=== PATIENT | female | born 1995 | race Two or more races ===

== ENCOUNTER 2023-10-04 09:16 | Emergency (ER) | payer OTHER ==
[~2023-10-04] VITALS: Ht 170.2 cm; Wt 72.0 kg
[2023-10-04 10:43] VITALS: BP 105/72; PULSE 82; RESP 18; TEMP 98.1; O2SAT 98
[2023-10-04 12:22] LABS: Basophils # (auto) 0 10 ^3/uL (0-0.2); Basophils % (auto) 0.8 % (0.0-2.0); Eosinophils # (auto) 0.1 10 ^3/uL (0-0.8); Eosinophils % (auto) 3.1 % (0.0-7.0); Hematocrit 39.6 % (36.0-46.0); Lymphocytes # (auto) 1.6 10 ^3/uL (0.4-5.4); Lymphocytes % (auto) 35.7 % (10.0-50.0); Mean Corpuscular Hemoglobin 28.3 pg (28.0-32.0); Mean Corpuscular Hgb Conc. 32.7 g/dL (32.0-36.0); Mean Corpuscular Volume 86.4 fL (80.0-100.0); Monocytes # (auto) 0.4 10 ^3/uL (0-1.3); Monocytes % (auto) 8.8 % (0.0-12.0); Neutrophils # (auto) 2.3 10 ^3/uL (1.6-8.6); Neutrophils % (auto) 51.6 % (37.0-80.0); Nucleated Red Blood Cells % 0.1 %; Red Blood Cells 4.58 10^6/uL (4.0-5.20); Red Cell Distribution Width 13.7 % (11.8-14.3); White Blood Cell 4.5 10^3/uL (4.4-10.8)
[2023-10-04 12:30] LABS: Alanine Aminotransferase 21 U/L (7-40); Albumin 4.2 g/dL (3.2-4.8); Alkaline Phosphatase 74 U/L (46-116); Anion Gap 4 (5-15); Aspartate Aminotransferase 37 U/L (13-40); BUN/Creatinine Ratio 12.8 (10.0-20.0); Blood Urea Nitrogen 11 mg/dL (9-23); Calcium 8.8 mg/dL (8.5-10.1); Carbon Dioxide 26 mmol/L (20-30); Chloride 108 mmol/L (98-107); Glucose 103 mg/dL (74-106); Potassium 4.8 mmol/L (3.5-5.1); Sodium 138 mmol/L (136-145)
[2023-10-04] MEDS: DOXYCYCLINE 100MG/250ML 250 ML IV ONE (12:30)
[2023-10-04 12:31] LABS: Bilirubin, Total 0.5 mg/dL (0.2-1.0); INR 1.04 (0.9-1.15); Prothrombin Time 10.9 sec (9.3-11.8)
[2023-10-04] MEDS ORDERED: DOXY-286 PO (13:09)
[2023-10-04] MEDS ORDERED: CALA1SUS2 EX (13:09)
[2023-10-04] MEDS ORDERED: TRIA0.1O TOP (13:09)
[2023-10-04] MEDS ORDERED: PRED20TA2 PO (13:09)
== END 2023-10-04 13:15 | disposition home or self-care (01) ==
LOC: ER 09:16
DX: R21 Rash and other nonspecific skin eruption (principal); Z79.899 Other long term (current) drug therapy; Z86.2 Personal history of diseases of the blood and blood-forming organs and certain disorders involving the immune mechanism
CPT/HCPCS: 36415; 80053; 85025; 85610